=== PATIENT | female | born 1970 | race Caucasian/White ===

== ENCOUNTER → 2016-11-10 | Outpatient (CLI) | payer OTHER ==
[~2016-11-10] MED LIST: FOLIC ACID 40400 MCG PO; NATURAL FLAX1000 MG PO; PRENATAL1 TA1 PO; TYLENOL 8 HR PO
== END ==
LOC: COL.RAD 08:30
DX: S46.811A Strain of other muscles, fascia and tendons at shoulder and upper arm level, right arm, initial encounter (principal)
CPT/HCPCS: A9585; Q9967

== ENCOUNTER 2017-01-14 06:35 | Day surgery (SDC) | payer OTHER ==
[~2017-01-14] VITALS: Ht 167.6 cm; Wt 73.6 kg
[2017-01-14] VITALS (8 sets, daily range): BP systolic 102–124; BP diastolic 20–76; PULSE 70–95; TEMP 97–98
[~2017-01-14 06:35] MED LIST changes: -NATURAL FLAX1000 MG PO; -TYLENOL 8 HR PO
[2017-01-14] MEDS ORDERED: FOLIC ACID 40400 MCG PO (07:29)
[2017-01-14] MEDS ORDERED: NATURAL FLAX1000 MG PO (07:30)
[2017-01-14] MEDS ORDERED: TYLENOL 8 HR PO (07:30)
[2017-01-15 00:40] VITALS: BP 102/33; PULSE 65; TEMP 98.5
[2017-01-15 04:02] VITALS: BP 101/42; PULSE 55; TEMP 98.2
[2017-01-15 09:10] VITALS: BP 116/48; PULSE 53; TEMP 97.6
[2017-01-15 13:15] VITALS: BP 121/47; PULSE 67; TEMP 98.8
== END 2017-01-15 15:30 | disposition home or self-care (01) ==
LOC: SDCO 06:35 → JCC 14:15 → SDCO 01-15 15:30
DX: M75.122 Complete rotator cuff tear or rupture of left shoulder, not specified as traumatic (principal); W00.0XXA Fall on same level due to ice and snow, initial encounter
CPT/HCPCS: OP; C1713; J0171; J0690; J1100; J1170; J1885; J2175; J2270; J2405; J2550; J2704; J3010; J7120

== ENCOUNTER 2017-05-03 14:00 | Outpatient (RCR) | payer OTHER ==
[~2017-05-03 14:00] MED LIST changes: +NATURAL FLAX1000 MG PO; +TYLENOL 8 HR PO
== END 2017-05-04 | disposition home or self-care (01) ==
LOC: WSPT
DX: Z47.89 Encounter for other orthopedic aftercare (principal); M25.811 Other specified joint disorders, right shoulder
CPT/HCPCS: G0283-GP

== ENCOUNTER → 2017-08-17 | Outpatient (CLI) | payer OTHER | LOC: MC.RAD 12:59 | DX: D24.1 Benign neoplasm of right breast (principal); D24.2 Benign neoplasm of left breast ==

== ENCOUNTER 2017-10-20 14:00 | Outpatient (RCR) | payer OTHER | END 2017-10-20 16:26 | disposition home or self-care (01) | LOC: WSPT 14:00 | DX: Z47.89 Encounter for other orthopedic aftercare (principal); M25.811 Other specified joint disorders, right shoulder ==

== ENCOUNTER → 2018-07-28 | Outpatient (CLI) | payer OTHER | LOC: COL.RAD 14:17 | DX: M75.122 Complete rotator cuff tear or rupture of left shoulder, not specified as traumatic (principal); S46.812A Strain of other muscles, fascia and tendons at shoulder and upper arm level, left arm, initial encounter ==

== ENCOUNTER 2018-08-09 05:51 | Day surgery (SDC) | payer OTHER ==
[~2018-08-09] VITALS: Ht 167.6 cm; Wt 75.6 kg
[2018-08-09 06:38] VITALS: BP 120/51; PULSE 80; TEMP 97.5
[2018-08-09 10:25] VITALS: BP 104/46; PULSE 75; TEMP 97.6
[2018-08-09 10:40] VITALS: BP 104/51; PULSE 65
[2018-08-09 11:05] VITALS: BP 101/54; PULSE 69
[2018-08-09 11:10] VITALS: BP 102/59; PULSE 59
[2018-08-09 11:25] VITALS: BP 98/58; PULSE 57
[2018-08-09] MEDS ORDERED: NORCO 325 MG-7.1 TAB PO (11:42)
[2018-08-09] MEDS ORDERED: ROXICODONE 55 MG/TAB PO (11:42)
== END 2018-08-09 13:50 | disposition home or self-care (01) ==
LOC: SDCO 05:51
DX: M75.122 Complete rotator cuff tear or rupture of left shoulder, not specified as traumatic (principal); M75.80 Other shoulder lesions, unspecified shoulder; M75.22 Bicipital tendinitis, left shoulder; Z79.82 Long term (current) use of aspirin; Z82.5 Family history of asthma and other chronic lower respiratory diseases; Z83.3 Family history of diabetes mellitus; Z82.61 Family history of arthritis
CPT/HCPCS: C1713; J0690; J1100; J2250; J2405; J2550; J2704; J3010; J7120

== ENCOUNTER 2018-11-25 07:30 | Outpatient (RCR) | payer OTHER ==
[~2018-11-25 07:30] MED LIST changes: +NORCO 325 MG-7.1 TAB PO; +ROXICODONE 55 MG/TAB PO
== END 2018-11-29 | disposition home or self-care (01) ==
LOC: WSPT
DX: Z47.89 Encounter for other orthopedic aftercare (principal)
CPT/HCPCS: G0283-GP

== ENCOUNTER 2019-01-12 07:00 | Outpatient (RCR) | payer OTHER | END 2019-02-28 | LOC: WSPT | DX: Z98.890 Other specified postprocedural states (principal); Z96.612 Presence of left artificial shoulder joint ==

== ENCOUNTER → 2019-02-06 | Outpatient (CLI) | payer OTHER | LOC: MC.RAD 01-03 17:00 | DX: Z12.31 Encounter for screening mammogram for malignant neoplasm of breast (principal) ==

== ENCOUNTER → 2019-03-23 | Outpatient (CLI) | payer OTHER | LOC: MC.RAD 03-10 13:00 | DX: R22.32 Localized swelling, mass and lump, left upper limb (principal) ==

== ENCOUNTER → 2021-01-14 | Outpatient (CLI) | payer OTHER ==
[2021-01-14 14:51] LABS: BASO # 0.1 (0.0-0.2); BASO % 0.9 % (0.0-2.0); EOS # 0.2 (0.0-0.7); EOS % 3.2 % (0-4.0); GRAN # 4.3 (1.4-6.5); GRAN % 62.1 % (42.2-75.2); HEMATOCRIT 37.4 % (37.0-47.0); HEMOGLOBIN 12.5 g/dl (12.5-16.0); LYMPH # 1.8 (1.2-3.4); LYMPH % 26.6 % (20.0-51.0); MEAN CELL VOLUME 87 fl (80.0-100.0); MEAN CORPUSCULAR HEMOGLOBIN 29 pg (27.0-31.0); MEAN CORPUSCULAR HGB CONC 33 g/dl (33.0-37.0); MEAN PLATELET VOLUME 9.3 fl (7.4-10.4); MONO # 0.5 (0.1-0.6); MONO % 6.9 % (1.7-9.3); PLATELET COUNT 247 K/mm3 (130-400); RED BLOOD COUNT 4.31 M/mm3 (4.10-5.30); REDCELL DISTRIBUTION WIDTH-CV 12.5 % (11.5-14.5)
[2021-01-14 15:00] LABS: CALCIUM 8.8 mg/dL (8.4-10.2); CREATININE, serum 0.66 (0.52-1.25); POTASSIUM 3.7 mmol/L (3.4-5.0)
[2021-01-14 15:30] LABS: THYROID STIMULATING HORMONE 0.429 uIU/mL (0.465-4.680)
== END ==
LOC: COL.LAB 14:02
PROVIDERS: Internal Medicine
DX: I49.9 Cardiac arrhythmia, unspecified (principal); R79.89 Other specified abnormal findings of blood chemistry

== ENCOUNTER → 2022-02-10 | Outpatient (CLI) | payer OTHER | LOC: MC.RAD 13:24 | DX: Z12.31 Encounter for screening mammogram for malignant neoplasm of breast (principal) ==

== ENCOUNTER → 2022-02-16 | Outpatient (CLI) | payer OTHER | LOC: MC.RAD 13:00 | DX: Z12.31 Encounter for screening mammogram for malignant neoplasm of breast (principal) ==

== ENCOUNTER → 2022-02-17 | Outpatient (CLI) | payer OTHER ==
[2022-02-17 07:39] LABS: BASO # 0.1 K/mm3 (0.0-0.2); EOS # 0.2 K/mm3 (0.0-0.7); EOS % 3.1 % (0.0-4.0); GRAN # 3.4 K/mm3 (1.4-6.5); GRAN % 58.8 % (42.2-75.2); HEMATOCRIT 37.2 % (37.0-47.0); HEMOGLOBIN 12.5 g/dl (12.5-16.0); LYMPH # 1.7 K/mm3 (1.2-3.4); LYMPH % 29.3 % (20.0-51.0); MEAN CELL VOLUME 87 fl (80.0-100.0); MEAN CORPUSCULAR HEMOGLOBIN 29 pg (27-31); MEAN CORPUSCULAR HGB CONC 34 g/dl (33.0-37.0); MEAN PLATELET VOLUME 9.3 fl (7.4-10.4); MONO # 0.4 K/mm3 (0.1-0.6); MONO % 7.5 % (1.7-9.3); PLATELET COUNT 215 K/mm3 (130-400); RED BLOOD COUNT 4.28 M/mm3 (4.10-5.30); REDCELL DISTRIBUTION WIDTH-CV 13.1 % (11.5-14.5)
[2022-02-17 07:53] LABS: ALBUMIN 3.8 gm/dL (3.5-5.0); BILIRUBIN,TOTAL 0.6 mg/dL (0.2-1.2); CALCIUM 8.8 mg/dL (8.4-10.2); CREATININE, serum 0.8 mg/dL (0.57-1.11); POTASSIUM 4.1 mmol/L (3.5-4.5); TOTAL PROTEIN 7.1 gm/dL (6.2-8.1)
[2022-02-17 08:13] LABS: THYROID STIMULATING HORMONE 0.421 uIU/mL (0.350-4.940)
== END ==
LOC: COL.LAB 07:11
PROVIDERS: Internal Medicine
DX: Z00.00 Encounter for general adult medical examination without abnormal findings (principal)